=== PATIENT | male | born 1955 | race Caucasian/White ===

== ENCOUNTER → 2022-06-20 14:55 | Outpatient (BNVA) | payer MEDICARE, BC, SELFPAY | PROVIDERS: Visit Provider Dermatology | DX: D48.9 Neoplasm of uncertain behavior, unspecified (principal) | CPT/HCPCS: 88305 ==

== ENCOUNTER → 2023-02-18 12:51 | Outpatient (BNVA) | payer MEDICARE, SELFPAY | PROVIDERS: PCP Family Medicine; Visit Provider Dermatology | DX: L57.0 Actinic keratosis (principal); L82.1 Other seborrheic keratosis; L81.4 Other melanin hyperpigmentation; L50.8 Other urticaria; Z85.828 Personal history of other malignant neoplasm of skin | CPT/HCPCS: 17000; 17003; 17110; 99213 ==

== ENCOUNTER → 2023-06-20 14:30 | Outpatient (BNVA) | payer MEDICARE, SELFPAY | PROVIDERS: PCP Family Medicine; Visit Provider Nurse Practitioner Family | DX: Z85.828 Personal history of other malignant neoplasm of skin (principal); L57.0 Actinic keratosis; L57.8 Other skin changes due to chronic exposure to nonionizing radiation; D22.4 Melanocytic nevi of scalp and neck; L81.4 Other melanin hyperpigmentation | CPT/HCPCS: 17000; 99213 ==

== ENCOUNTER 2024-04-02 14:31 | Outpatient (CLI) | payer MEDICARE, SELFPAY ==
[2024-04-03 14:58] LABS: COMPLEMENT, TOTAL (CH50) 55 U/mL (31-60)
[2024-04-03 18:55] LABS: COMPLEMENT COMPONENT C3C 127 mg/dL (82-185); COMPLEMENT COMPONENT C4C 25 mg/dL (15-53)
[2024-04-04 04:20] LABS: CENTROMERE B ANTIBODY <1.0 NEG AI (<1.0 NEG); JO-1 ANTIBODY <1.0 NEG AI (<1.0 NEG); RNP ANTIBODY <1.0 NEG AI (<1.0 NEG); SCL-70 ANTIBODY <1.0 NEG AI (<1.0 NEG); SJOGREN'S ANTIBODY (SS-A) <1.0 NEG AI (<1.0 NEG); SM ANTIBODY <1.0 NEG AI (<1.0 NEG); SS-B <1.0 NEG AI (<1.0 NEG)
[2024-04-07 09:25] LABS: ANA SCREEN, IFA POSITIVE (NEGATIVE)
[2024-04-07 09:34] LABS: ANA PATTERN Nuclear, Homogeneous
[2024-04-07 10:10] LABS: THYROID PEROXIDASE ANTIBODIES 1 IU/mL (<9)
== END 2024-04-02 14:32 | disposition home or self-care (01) ==
PROVIDERS: PCP Family Medicine; Visit Provider Nurse Practitioner Family
DX: L93.1 Subacute cutaneous lupus erythematosus (principal)
CPT/HCPCS: 86160; 86162; 86235; 86255; 86376

== ENCOUNTER 2024-05-05 15:12 | Outpatient (CLI) | payer MEDICARE, SELFPAY ==
--- NOTE | 2024-05-05 15:17 | XRR_ITS ---
PROCEDURE INFORMATION: Exam: XR Left Knee Exam date and time: 05/05/2024 3:29 PM Age: 68 years old Clinical indication: Pain; Knee; Bilateral; Additional info: Inflammatory polyarthropasty/lupus TECHNIQUE: Imaging protocol: Radiologic exam of the left knee. Views: 3 views. COMPARISON: No relevant prior studies available. FINDINGS: Bones/joints: Normal. Soft tissues: Normal. XR/XR knee LT 3V* [id number] IMPRESSION: No acute findings.
--- NOTE | 2024-05-05 15:17 | XRR_ITS ---
PROCEDURE INFORMATION: Exam: XR Right Knee Exam date and time: 05/05/2024 3:29 PM Age: 68 years old Clinical indication: Pain; Knee; Bilateral; Additional info: Inflammatory polyarthropathy TECHNIQUE: Imaging protocol: Radiologic exam of the right knee. Views: 3 views. COMPARISON: No relevant prior studies available. FINDINGS: Bones/joints: No acute fracture or dislocation. Mild narrowing of the medial compartment. No joint effusion. Soft tissues: Normal. XR/XR knee RT 3V* [id number] IMPRESSION: No acute osseous findings.
[2024-05-05 15:43] LABS: Basophils % 0.5 %; Eosinophils # 0.2 10^3/uL (0.0-0.8); Eosinophils % 2.8 %; Hematocrit 43.9 % (37-53); Lymphocytes % 30.6 %; Mean Corpuscular HGB Conc 34.4 g/dL (30-55); Mean Corpuscular Hemoglobin 30.4 pg (27-33); Mean Corpuscular Volume 88.5 fl (82-101); Mean Platelet Volume 10.1 fL (7.4-10.4); Monocytes # 0.5 10^3/uL (0.2-0.9); Neutrophils # 3.77 10^3/uL (1.8-7.7); Neutrophils % 58.8 %; Nucleated Red Blood Cells % 0 %; Platelet Count 268 10^3/cmm (157-399); Red Blood Count 4.96 10^6/uL (3.85-5.65); Red Cell Distribution Width 12.7 % (12.1-15.1); White Blood Count 6.41 10^3/uL (3.29-11.43)
[2024-05-05 15:46] LABS: Erythrocyte Sedimentation Rate 5 mm/hr (0-10)
[2024-05-05 16:23] LABS: Alanine Aminotransferase 15 U/L (0-41); Albumin Level 4.2 g/dL (3.5-5.2); Alkaline Phosphatase 98 U/L (40-130); Anion Gap 15.4 (5-19); Aspartate Amino Transferase 18 U/L (0-40); Blood Urea Nitrogen 15 mg/dL (8-23); Calcium 9.6 mg/dL (8.5-10.5); Carbon Dioxide 25 mmol/L (22-29); Chloride 101 mmol/L (98-107); Globulin 2.7 g/dL (1.3-4.6); Glomerular Filtration Rate 95.6 mL/min (90-130); Glucose 85 mg/dL (65-115); Osmolality Calculated 284 mOsm/kg (285-295); Potassium 4.4 mmol/L (3.5-5.1); Sodium 137 mmol/L (136-145); Total Bilirubin 0.3 mg/dL (0.15-1.2); Total Protein 6.9 g/dL (6.6-8.7)
== END 2024-05-05 15:13 | disposition home or self-care (01) ==
LOC: LAB 15:14
PROVIDERS: PCP Family Medicine; Visit Provider Nurse Practitioner Family
DX: M06.4 Inflammatory polyarthropathy (principal)
CPT/HCPCS: 36415; 73562; 80048; 80076; 85025; 85651; 86140; 86431

== ENCOUNTER → 2024-08-05 09:50 | Outpatient (BNVA) | payer MEDICARE, SELFPAY | PROVIDERS: PCP Family Medicine; Referring Provider Nurse Practitioner Family; Visit Provider Internal Medicine Rheumatology | DX: M25.569 Pain in unspecified knee (principal); R76.8 Other specified abnormal immunological findings in serum; Z79.899 Other long term (current) drug therapy | CPT/HCPCS: 36415; 73562; 80076; 82565; 85025; 85651; 86140; 86200; 99204 ==

== ENCOUNTER → 2024-11-04 09:12 | Outpatient (BNVA) | payer MEDICARE, SELFPAY | PROVIDERS: PCP Family Medicine; Visit Provider Internal Medicine Rheumatology | DX: R21 Rash and other nonspecific skin eruption (principal); M25.50 Pain in unspecified joint; Z79.899 Other long term (current) drug therapy; Z71.85 Encounter for immunization safety counseling; R76.8 Other specified abnormal immunological findings in serum | CPT/HCPCS: 99214 ==

== ENCOUNTER 2025-01-26 10:35 | Outpatient (CLI) | payer MEDICARE, SELFPAY ==
[2025-01-26 11:37] LABS: Hematocrit 36.8 % (37-53); Hemoglobin 12.10 g/dL (11.27-16.99); Mean Corpuscular HGB Conc 32.9 g/dL (30-55); Mean Corpuscular Hemoglobin 30.0 pg (27-33); Mean Corpuscular Volume 91.1 fl (82-101); Nucleated Red Blood Cells % 0 %; Platelet Count 203 10^3/cmm (157-399); Red Blood Count 4.04 10^6/uL (3.85-5.65); White Blood Count 6.80 10^3/uL (3.29-11.43)
[2025-01-26 11:55] LABS: Alanine Aminotransferase 20 U/L (0-41); Albumin Level 3.9 g/dL (3.5-5.2); Alkaline Phosphatase 84 U/L (40-130); Aspartate Amino Transferase 16 U/L (0-40); Globulin 3.2 g/dL (1.3-4.6); Total Protein 7.1 g/dL (6.6-8.7)
== END 2025-01-26 10:36 | disposition home or self-care (01) ==
PROVIDERS: Internal Medicine Rheumatology; PCP Family Medicine; Visit Provider Internal Medicine
DX: Z79.899 Other long term (current) drug therapy (principal)
CPT/HCPCS: 36415; 80076; 82565; 85025; 85651; 86140

== ENCOUNTER → 2025-02-16 11:34 | Outpatient (BNVA) | payer MEDICARE, SELFPAY | PROVIDERS: PCP Family Medicine; Visit Provider Internal Medicine Rheumatology | DX: R21 Rash and other nonspecific skin eruption (principal); M13.0 Polyarthritis, unspecified; Z79.899 Other long term (current) drug therapy; Z71.85 Encounter for immunization safety counseling; R76.8 Other specified abnormal immunological findings in serum; Z95.1 Presence of aortocoronary bypass graft; Z98.890 Other specified postprocedural states | CPT/HCPCS: 99214 ==

== ENCOUNTER → 2025-02-17 08:22 | Outpatient (BNVA) | payer MEDICARE, SELFPAY | PROVIDERS: PCP Family Medicine; Visit Provider Nurse Practitioner Family | DX: L57.8 Other skin changes due to chronic exposure to nonionizing radiation (principal); B00.1 Herpesviral vesicular dermatitis; L82.1 Other seborrheic keratosis; Z08 Encounter for follow-up examination after completed treatment for malignant neoplasm; Z85.828 Personal history of other malignant neoplasm of skin; L57.0 Actinic keratosis | CPT/HCPCS: 17000; 99213 ==